=== PATIENT | male | born 1985 | race Caucasian/White ===

== ENCOUNTER 2024-07-10 09:20 | Outpatient (REF) | payer OTHER, SELFPAY ==
--- OUTSIDE RECORDS SUMMARY | 2024-07-10 09:59 | XMS_ITS | Data Portability ---
Author Organization [facility] Home Service Address [address] [place] [address] Assessment No assessment recorded. Plan of Treatment Reminders Order Date Submit Date Provider Last Modified By Organization Details Last Modified Time Details Appointments ANNUAL EXAM 2024 09:00A KIMMIE MCLAUGHLIN Not available Not available Not available ANNUAL EXAM 2025 09:00A KIMMIE MCLAUGHLIN Not available Not available Not available Lab HIV 1+2 AB + HIV 1 p24 Ag, qualitati ve immunoass ay, serum 2018 019 [email or web address] Not available 01/20/2019 10:10:27 hepatitis C Ab, serum 2018 019 [email or web address] Not available 01/20/2019 10:10:27 HBsAg (hepatiti s B surface Ag), confirmat ion, serum 2018 019 [email or web address] Not available 01/20/2019 10:10:27 hbcab (hepatiti s B core Ab) igm, serum 2018 019 JACOBO Not available 03/02/2019 16:48:46 hepatitis B surface Ab, quantitat brody, serum 2018 019 JACOBO Not available 03/02/2019 08:35:24 CMP, serum or plasma 2018 019 JACOBO Not available 02/09/2019 08:21:39 hepatitis B surface Ab, quantitat brody, serum 2018 020 [email or web address] Not available 03/02/2019 08:35:24 hbcab (hepatiti s B core Ab) igm, serum 2018 020 JACOBO Not available 03/02/2019 16:48:45 HIV 1+2 AB + HIV 1 p24 Ag, qualitati ve immunoass ay, serum 2019 020 sbucko Not available 07/15/2019 16:42:38 hepatitis C Ab, serum 2019 020 [email or web address] Not available 07/15/2019 16:42:38 HBsAg (hepatiti s B surface Ag), confirmat ion, serum 2019 020 sbucko Not available 07/15/2019 16:42:38 hbcab (hepatiti s B core Ab) igm, serum 2019 sbucko Not available 07/15/2019 16:42:38 hepatitis B surface Ab, quantitat brody, serum 2019 020 sbucko Not available 07/15/2019 16:42:39 urinalysi s, dipstick 2019 020 [facility], [address] [facility], [place], [address], 07/15/2019 16:27:33 CMP, serum or plasma 2019 020 JACOBO Not available 09/04/2019 17:01:51 lipids, total, serum 2019 020 JACOBO Not available 09/04/2019 17:01:51 CBC w/ diff 2019 020 JACOBO Not available 09/04/2019 17:01:51 RPR (rapid plasma reagin), serum 2022 023 [facility], [address] [place] [address], [place], [address], 06/15/2022 09:55:16 lipid panel, blood 2022 023 [facility], [address] [place] [address], [place], [address], 07/23/2022 17:06:50 CMP, serum or plasma 2022 023 [facility], [address] [place] [address], [id number], 07/23/2022 17:06:49 CBC w/ auto diff 2022 023 [facility], [address] [place] [address], [id number], 06/15/2022 09:55:16 CMP, serum or plasma 2023 024 [facility], [address] [place] [address], [id number], 06/28/2023 09:18:44 lipid panel, blood 2023 024 [facility], [address] [place] [address], [id number], 06/28/2023 09:18:44 CBC w/ auto diff 2023 024 [facility], [address] [place] [address], [id number], 06/28/2023 09:18:44 hemoglobi n A1c, QN, blood 2023 024 [facility], [address] [place] [address], [id number], 06/28/2023 09:18:44 PSA, serum or plasma 2023 024 [facility], [address] [place] [address], [id number], 06/28/2023 09:18:44 CMP, serum or plasma 2024 025 [facility], [address] [place] [address], [id number], 07/10/2024 09:10:04 lipid panel, blood 2024 025 [facility], [address] [place] [address], [id number], 07/10/2024 09:10:04 CBC w/ auto diff 2024 025 [facility], [address] [place] [address], [id number], 07/10/2024 09:10:04 hemoglobi n A1c, QN, blood 2024 025 [facility], [address] [place] [address], [id number], 07/10/2024 09:10:04 PSA, total + free, serum or plasma 2024 025 [facility], [address] [place] [address], [id number], 07/10/2024 09:10:04 Referral general surgeon referral 2023 024 [facility] Fel[address] Pedraza, [place], [address], 06/28/2023 10:36:09 urologist referral 2024 025 [facility], [facility] [place], [address], 07/10/2024 09:31:02 Procedures None recorded. Surgeries None recorded. Imaging None recorded. Medication Orders Isentress HD 600 mg tablet 2018 019 [id number], [address], [place], [id number], 07/15/2019 16:08:21 Truvada 200 mg-300 mg tablet 2018 019 [id number], [address], [place], [place], [phone], 07/15/2019 16:08:26 Patient TargetsNo targets recorded. Patient Instructions Encounter Date Encounter Id Patient Instructions Last Modified By Organization Details Last Modified Time 07/15/2019 [id number] high blood pressure: care instructions [email or web address] Not available 07/15/2019 16:27:33 learning about high blood pressure [email or web address] Not available 07/15/2019 16:27:32 Reason for Referral General Surgeon Referral for Lipoma of skin has a lipoma in the lower left side of his back, would like removed Referring Physician: Francisca Fontenot, Internal Medicine, Encounter Date: 06/28/2023 Urologist Referral for Vasec cody requested would like to have a vasectomy Referring Physician: Francisca Fontenot, Internal Medicine, Encounter Date: 07/10/2024 Results Created Date Observation Date Name Description Value Unit Range Abnormal Flag Note LastModifiedBy Organization Detail LastModifiedTime 07/15/1907/15/2019 urina lysis , dipst ick Leukocytes Trace Not Available [facility] [address], [place], [address], 07/15/2019 16:09:56 07/15/1907/15/2019 urina lysis , dipst ick Nitrite negati ve Not Available [facility] [address], [place], [address], 07/15/2019 16:09:56 07/15/1907/15/2019 urina lysis , dipst ick Urobilinogen 1 Not Available [facility] [address], [place], [address], 07/15/2019 16:09:56 07/15/19 20 07/15/2019 urina lysis , dipst ick Protein Trace Not Available [facility] [address], [place], [address], 07/15/2019 16:09:56 07/15/1907/15/2019 urina lysis , dipst ick pH 6.[address] [facility] [address], [place], [address], 07/15/2019 16:09:56 07/15/19 20 07/15/2019 urina lysis , dipst ick Blood Negati ve Not Available [facility] [address], [place], [address], 07/15/2019 16:09:56 07/15/19 20 07/15/2019 urina lysis , dipst ick Specific [place] 1.[address] [facility] [address], [place], [address], 07/15/2019 16:09:56 07/15/19 20 07/15/2019 urina lysis , dipst ick Ketone Trace Not Available [facility] [address], [place], [address], 07/15/2019 16:09:56 07/15/19 20 07/15/2019 urina lysis , dipst ick Bilirubin Negati ve Not Available [facility] [address], [place], [address], 07/15/2019 16:09:56 07/15/19 20 07/15/2019 urina lysis , dipst ick Glucose Negati ve Not Available [facility] [address], [place], [address], 07/15/2019 16:09:56 07/15/19 20 07/15/2019 urina lysis , dipst ick Appearance Clear Not Available [facility] [address], [place], [address], 07/15/2019 16:09:56 07/15/19 20 07/15/2019 urina lysis , dipst ick Color Yellow Not Available [facility] [address], [place], [address], 07/15/2019 16:09:56 Result Notes None recorded. Problems Name Problem SNOMED Code Status Onset Date Resolution Date Notes Provider Name and Address Organization Details Recorded Time Achilles tendinitis 09019259 Active 2018 KIMMIE CASTANON [address] [place] [address], [address], [facility] 3 09:42:24 Hemorrhoid s 34856313 [facility] 16:[facility]:01 History of chickenpox 875774592 Active 2018 [facility] 16:51:08 Rupture of Achilles tendon 943212068 Active 2018 Daren Hand, [address] [place] [address], [address], [facility] 9 15:13:43 Lipoma of skin 673087983 Active 2023 KIMMIE CASTANON [address] [place] [address], [address], [facility] 4 09:09:58 Adult attention deficit hyperactiv ity disorder 452665044 Active 2024 KIMMIE CASTANON [address] [place] [address], [address], [facility] 5 09:04:26 Problem Notes None recorded. Medical Equipment None Reported. Allergies Allergen ID Allergen Name Allergen Category Reaction Reaction Severity Criticality Documentation Date Start Date Code Code System Note Provider Name and Address Organization Details Recorded Time 2680 Substance with sulfonami de structure and antibacte rial mechanism of action (substanc e) medicatio n Not available Not available Not available 06/11/2018 83520 8003 [facility]ED [facility] 16:50:42 Medications Name Sig Start Date Stop Date Status Note LastModified by Organization Details LastModified Time clindamycin HCl 300 mg capsule 06/13 completed Not Available Not Available Not Available aspirin 325 mg tablet,delay ed release 06/13 completed Not Available Not Available Not Available oxycodone 5 mg tablet 06/13 completed Not Available Not Available Not Available Truvada 200 mg-300 mg tablet 200 mg/300 mg PO qd 07/15 completed Not Available Not Available Not Available M-M-R II (PF) 1,000-12,500 TCID50/0.5 mL subcutaneous solution 06/13 completed Not Available Not Available Not Available Isentress HD 600 mg tablet Take 2 tablets every day by oral route for 23 days. 07/15 completed Not Available Not Available Not Available Vitals Date Recorded Body height Body mass index (BMI) Body weight Heart rate Oxygen saturation Oxygen saturation in Arterial blood by Pulse oximetry Systolic blood pressure Diastolic blood pressure Provider Name and Address Organization Details Last Updated DateTime 0 180.98 cm 23.3 kg/m2 32693.6 7 g 66 /min 99 % 99 % 140 mm[Hg] 90 mm[Hg] Jo Cruz [facility] 0 16:09:39 Date Recorded Body height Body mass index (BMI) Body weight Oxygen saturation Oxygen saturation in Arterial blood by Pulse oximetry Heart rate Systolic blood pressure Diastolic blood pressure Provider Name and Address Organization Details Last Updated DateTime 3 180.98 cm 23.4 kg/m2 35856.3 9 g 99 % 99 % 61 /min 110 mm[Hg] 64 mm[Hg] Katiuska Brown [facility] 3 09:33:46 Date Recorded Body height Body mass index (BMI) Body weight Heart rate Oxygen saturation Oxygen saturation in Arterial blood by Pulse oximetry Systolic blood pressure Diastolic blood pressure Provider Name and Address Organization Details Last Updated DateTime 4 180.34 cm 24.4 kg/m2 87958.6 6 g 61 /min 98 % 98 % 120 mm[Hg] 60 mm[Hg] Dayana Bess [facility] 4 09:05:27 Date Recorded Body height Body mass index (BMI) Body weight Heart rate Oxygen saturation Oxygen saturation in Arterial blood by Pulse oximetry Systolic blood pressure Diastolic blood pressure Provider Name and Address Organization Details Last Updated DateTime 5 180.34 cm 23.3 kg/m2 70741.9 3 g 68 /min 99 % 99 % 144 mm[Hg] 82 mm[Hg] Reece [place] [facility] 5 09:00:14 Date Recorded Body height Body mass index (BMI) Body weight Heart rate Oxygen saturation Oxygen saturation in Arterial blood by Pulse oximetry Systolic blood pressure Diastolic blood pressure Provider Name and Address Organization Details Last Updated DateTime 9 181.61 cm 22.7 kg/m2 29678.7 4 g 62 /min 99 % 99 % 138 mm[Hg] 90 mm[Hg] Jo Cruz [facility] 9 09:49:21 Social History Question Answer Notes LastModified by Organizat ion Details LastModified Time Tobacco Smoking Status Former Smoker Not Available [facility] 04[facility]05/2020 03:36:23 What Was The Date Of Your Most Recent Tobacco Screening? 07/10/2024 [email or web address] Information not available 07/10/2024 Do You Or Have You Ever Used Any Other Forms Of Tobacco Or Nicotine? No [email or web address] Information not available 06/28/2023 Sex: Unknown Functional Status None recorded. Mental Status None recorded. Family History Nothing Reported. Medical History Condition Response Coronary Artery Disease N Other N Gout N Kidney Stones N Blood Diseases N Breast Cancer N Blood Transfusion N Lung Disease N Depression N COPD N Defects or Inherited Disease N Anxiety Disorder N Muscle, Joint, or Bone Problems N Obesity N Vision or Eye Problems N Arthritis N Polyps N Infertility N Mental Disorder N Cancer N Varicosities N Stroke N Endometriosis N Bladder or Kidney Problems N High Cholesterol N Liver Disease N Headaches N Fibromyalgia N Kidney Disease N Allergies/Hayfever N Heart Problems N Hospitalizations N Thyroid Problems N GI Problems N Skin Problems N Eating Disorder N Anemia N MRSA exposure N Constipation N Mental Illness N Ovarian Cancer N Diabetes N Seizures/Epilepsy N Tuberculosis N Congestive Heart Failure (CHF) N Eczema N Diverticulitis N Abuse/Domestic Violence N Asthma N Reflux/GERD N Hepatitis N Heart Disease N Pulmonary Embolism N Hypertension N Osteoporosis N Chicken Pox N Autism Spectrum Disorder (ASD) N Immunizations Vaccine Type Date Status Note Provider Nam e and Address Organization Details Recorded Time COVID-19, mRNA, LNP-S, PF, 50 mcg/0.5 mL dose 0 completed Emeli Gencarelle null, [facility] 06/28/2023 09:01:43 COVID-19, mRNA, LNP-S, PF, 50 mcg/0.5 mL dose 1 completed Emeli Gencarelle null, [facility] 06/28/2023 09:01:43 COVID-19, mRNA, LNP-S, PF, 50 mcg/0.5 mL dose 1 completed Emeli Gencarelle null, [facility] 06/28/2023 09:01:43 COVID-19, mRNA, LNP-S, PF, 50 mcg/0.5 mL dose 2 completed Emeli Gencarelle [facility] 06/28/2023 09:01:43 influenza, unspecified formulation 5 completed Emeli Gencarelle [facility] 06/28/2023 09:01:43 Tdap 3 completed KIMMIE CASTANON [address] [place] [address], [address], [facility] 06/28/2023 09:14:38 influenza, unspecified formulation 4 completed KIMMIE CASTANON [address] [place] [address], [address], [facility] 07/10/2024 09:11:07 MMR 8 completed Jewell Chappell [facility] 06/13/2018 14:35:25 Past Encounters Encounter ID Performer Location Encounter Start Date Encounter Closed Date Diagnosis/Indication Diagnosis SNOMED-CT Code Diagnosis ICD10 Code Diagnosis Note [id number] [facility] [address] [facility],[place] [address] 06/13/2018 14:25:51 06/13/2018 15:21:43 Active or passive immunization 841642046 Z23 PPD read 72 hrs [id number] [facility] [address] [facility],[place] [address] 01/20/2019 09:40:59 01/20/2019 10:09:00 Needle stick injury of finger 469076946 S61.239A [id number] [facility] [address] [facility] [address], [address] [place] [facility] [place] [address] 07/15/2019 15:36:07 07/15/2019 16:48:47 Active or passive immunization 294538219 Z23 Adult heal th examination 418756063 Z00.00 takes vitamin d Needle sti ck injury of finger 878755536 S61.239A Essential hypertension 62390141 I10 pt to monitor BP at home and will send message via portal on readings at home if BP remains elevated plan to start low dose lisinopril [id number] [facility] [address] [facility] [address] 06/15/2022 09:26:21 06/15/2022 10:31:16 Active or passive immunization 877475723 Z23 up to date Adult heal th examination 331599006 Z00.00 BP is excellent today Venereal d isease screening 421385822 Z11.3 will set up with screeningw as in close contact [id number] KIMMIE CASTANON [facility] [address] [facility] [address], [place] [address] 06/28/2023 09:01:31 06/28/2023 09:54:31 Adult health examination 303337641 Z00.00 BP is excellent today Lipoma of skin 652584598 D17.1 will set up with consult with gen surgery [id number] KIMMIE CASTANON [facility] [address] [facility] [address] [address] 07/10/2024 08:52:38 07/10/2024 09:15:28 Adult health examination 877691191 Z00.00 BP is excellent today Vasectomy requested 2508 98733 Z30.2 will set up for patient Health Concerns Section Related Observation LastModified by Organization Detai ls LastModified Time None Recorded Concern Status LastModified by Organization Details LastModified Time None Recorded Advance Directives Directive None Recorded Payers Encounter Date Sequence Insurance Name Policy Number Policy Shannon Covered Member ID Shannon Member ID Guarantor Name 01/20/2019 1 [facility] [id number] Toribio Michaudauvais [id number] Toribio Brooks 07/15/2019 1 [facility] [id number] Toribio Sun [id number] Toribio Brooks 06/15/2022 1 [facility] [id number] Toribio Sun [id number] Toribio Brooks 06/28/2023 1 [facility] [id number] Toribio Sun [id number] Toribio Brooks 07/10/2024 1 [facility] [id number] Toribio Sun [id number] Toribio Boroks Sun Notes Date Note Type Note Provider Name a tx Address Organization Details Recorded Time 9 text/html needle stick at work started on prophylaxis at [facility] f/u labs September [address], [address] 01/20/2019 10:07:56 0 text/html Annual WellnessReported bypatient.Diet and Nutrition:healthy diet Fracture Risk:no history of fractures; no recent explained fracture; no sudden unexplained fractures; no previous musculoskeletal injuries Physical Activity:exercises on a regular basis; recent increase in physical activity; good physical condition Additional Lifestyle Factors:no tobacco use; no alcohol intake; stopped drinking alcohol Depression Risk:never feels sad, empty, or tearful; no loss of interest in activities; no significant changes in weight; no sleep disturbances or insomnia; no agitation; no loss of energy; no feelings of worthlessness or guilt; no thoughts of suicide; no history of depression; no history of mood disorders Hearing:no loss of hearing Vision:no vision problems Arleen [address], [address], [facility] 07/15/2019 16:34:05 3 text/html Annual WellnessReported bypatient.Diet and Nutrition:healthy diet; discussed vitamin and supplement use; discussed portion control; discussed maintaining calcium balance; discussed diet improvement; eating well, mostly plant based Fracture Risk:no history of fractures; no recent explained fracture; no sudden unexplained fractures; no previous musculoskeletal injuries; left radial fracture ruptured right achilles Physical Activity:exercises on a regular basis; recent increase in physical activity; good physical condition; discussed weightbearing activities; discussed exercise habits Additional Lifestyle Factors:no tobacco use; drinks alcohol (mild-moderate) (occasionally) Depression Risk:never feels sad, empty, or tearful; no loss of interest in activities; no significant changes in weight; no sleep disturbances or insomnia; no agitation; no loss of energy; no feelings of worthlessness or guilt; no thoughts of suicide; no history of depression; no history of mood disorders Hearing:no loss of hearing Vision:no vision problems; is thinking about a vision check did have RSV four months ago KIMMIE CASTANON [address] [place] [address], [address], [facility] 06/15/2022 09:55:06 4 text/html Annual WellnessReported bypatient.Diet and Nutrition:healthy diet; discussed vitamin and supplement use; discussed portion control; discussed maintaining calcium balance; discussed diet improvement Fracture Risk:no history of fractures; no recent explained fracture; no sudden unexplained fractures; no previous musculoskeletal injuries Physical Activity:exercises on a regular basis; recent increase in physical activity; good physical condition Additional Lifestyle Factors:no tobacco use; drinks alcohol (mild-moderate) Depression Risk:never feels sad, empty, or tearful; no loss of interest in activities; no significant changes in weight; no sleep disturbances or insomnia; no agitation; no loss of energy; no feelings of worthlessness or guilt; no thoughts of suicide; no history of depression; no history of mood disorders Hearing:no loss of hearing Vision:no vision problemsNotes:last dentist appt was 3 mos KIMMIE CASTANON [address] [place] [address], [address], [facility] 06/28/2023 09:22:28 5 text/html Annual WellnessReported bypatient.Diet and Nutrition:healthy diet; discussed vitamin and supplement use; discussed portion control; discussed maintaining calcium balance; discussed diet improvement Fracture Risk:no history of fractures; no recent explained fracture; no sudden unexplained fractures; no previous musculoskeletal injuries Physical Activity:exercises on a regular basis; recent increase in physical activity; good physical condition; discussed weightbearing activities; discussed exercise habits Additional Lifestyle Factors:no tobacco use; drinks alcohol (mild-moderate) Depression Risk:never feels sad, empty, or tearful; no loss of interest in activities; no significant changes in weight; no sleep disturbances or insomnia; no agitation; no loss of energy; no feelings of worthlessness or guilt; no thoughts of suicide; no history of depression; no history of mood disorders Hearing:no loss of hearing Vision:no vision problems KIMMIE CASTANON [address] [place] [address], [address], [facility] 07/10/2024 09:15:27
--- OUTSIDE RECORDS SUMMARY | 2024-07-10 09:59 | XMS_ITS | Continuity of Care Document ---
Author Organization [facility], [facility] Address [address] [place] [address] Assessment No assessment recorded. Plan of Treatment Reminders Order Date Submit Date Provider Last Modified By Organization Details Last Modified Time Details Appointments ANNUAL EXAM 2024 09:00A KIMMIE MCLAUGHLIN Not available Not available Not available ANNUAL EXAM 2025 09:00A KIMMIE MCLAUGHLIN Not available Not available Not available Lab CMP, serum or plasma 2024 025 [facility], [address] [place] [address], [id number], 07/10/2024 09:10:04 lipid panel, blood 2024 025 [facility], [address] [place] [address], [id number], 07/10/2024 09:10:04 CBC w/ auto diff 2024 025 [facility], [address] [place] [address], [id number], 07/10/2024 09:10:04 hemoglobi n A1c, QN, blood 2024 025 [facility], [address] [place] [address], [id number], 07/10/2024 09:10:04 PSA, total + free, serum or plasma 2024 025 [facility], [address], [place], [id number], 07/10/2024 09:10:04 Referral urologist referral 2024 025 [facility], [address] [place], [address], 07/10/2024 09:31:02 Procedures None recorded. Surgeries None recorded. Imaging None recorded. Medication Orders None recorded. Patient TargetsNo targets recorded. Patient InstructionsNo instructions recorded. Reason for Referral Urologist Referral for Vasec cody requested would like to have a vasectomy Referring Physician: Francisca Fontenot, Internal Medicine, Encounter Date: 07/10/2024 Problems Name Problem SNOMED Code Status Onset Date Resolution Date Notes Provider Name and Address Organization Details Recorded Time Achilles tendinitis 84569844 Active 2018 KIMMIE CASTANON [address] [place] [address], [phone], [facility] 3 09:42:24 Hemorrhoid s 12207493 [facility] 16[facility]01 History of chickenpox 416715546 Active 2018 Jewell gutierrez [facility] 9 16:51:08 Rupture of Achilles tendon 526040414 Active 2018 Daren Hand, [address] [place] [address], [phone], [facility] 9 15:13:43 Lipoma of skin 849534228 Active 2023 KIMMIE CASTANON [address] [place] [address], [phone], [facility] 4 09:09:58 Adult attention deficit hyperactiv ity disorder 145752025 Active 2024 KIMMIE CASTANON [address] [place] [address], [phone], [facility] 5 09:04:26 Problem Notes None recorded. Medical Equipment None Reported. Allergies Allergen ID Allergen Name Allergen Category Reaction Reaction Severity Criticality Documentation Date Start Date Code Code System Note Provider Name and Address Organization Details Recorded Time 2680 Substance with sulfonami de structure and antibacte rial mechanism of action (substanc e) medicatio n Not available Not available Not available 06/11/2018 16435 8003 SNOMED Jewell Ta gutierrez [facility] 9 16:50:42 Medications Name Sig Start Date [...] Updated DateTime 5 180.34 cm 23.3 kg/m2 02799.9 3 g 68 /min 99 % 99 % 144 mm[Hg] 82 mm[Hg] Reece Warren [facility] 5 09:00:14 Social History Question Answer Notes LastModified by Organizat ion Details LastModified Time Tobacco Smoking Status Former [facility]oker Not Available [facility] 04/05/2020 03:36:23 What Was The Date Of Your Most Recent Tobacco Screening? 07/10/2024 [email or web address] Information not available 07/10/2024 Do You Or Have You Ever Used Any Other Forms Of Tobacco Or Nicotine? No [email or web address] Information not available 06/28/2023 Sex: Unknown Functional Status None recorded. Mental Status None recorded. Family History Nothing Reported. Medical History Condition Response Coronary Artery Disease N Gout N Other N Kidney Stones N Blood Diseases N Blood Transfusion N Breast Cancer N COPD N Depression N Lung Disease N Defects or Inherited Disease N Anxiety Disorder N Muscle, Joint, or Bone Problems N Obesity N Vision or Eye Problems N Arthritis N Infertility N Polyps N Mental Disorder N Cancer N Stroke N Varicosities N Endometriosis N Bladder or Kidney Problems N High Cholesterol N Liver Disease N Fibromyalgia N Headaches N Kidney Disease N Allergies/Hayfever N Heart Problems N Hospitalizations N Thyroid Problems N GI Problems N Eating Disorder N Skin Problems N Anemia N MRSA exposure N Constipation N Mental Illness N Diabetes N Ovarian Cancer N Seizures/Epilepsy N Tuberculosis N Congestive Heart Failure (CHF) N Eczema N Abuse/Domestic Violence N Diverticulitis N Asthma N Reflux/GERD N Hepatitis N Heart Disease N Pulmonary Embolism N Hypertension N Chicken Pox N Autism Spectrum Disorder (ASD) N Osteoporosis N Immunizations Vaccine Type Date Status Note Provider Nam e and Address Organization Details Recorded Time COVID-19, mRNA, LNP-S, PF, 50 mcg/0.5 mL dose 0 completed Emeli Gencarelle [facility] 06/28/2023 09:01:43 COVID-19, mRNA, LNP-S, PF, 50 mcg/0.5 mL dose 1 completed Emeli Gencarelle [facility] 06/28/2023 09:01:43 COVID-19, mRNA, LNP-S, PF, 50 mcg/0.5 mL dose 1 completed Emeli Gencarelle null, [facility] 06/28/2023 09:01:43 COVID-19, mRNA, LNP-S, PF, 50 mcg/0.5 mL dose 2 completed Emeli Gencarelle [facility] 06/28/2023 09:01:43 influenza, unspecified formulation 5 completed Emeli Gencarelle [facility] 06/28/2023 09:01:43 Tdap 3 completed KIMMIE CASTANON [address] [place] [address], [phone], [facility] 06/28/2023 09:14:38 influenza, unspecified formulation 4 completed KIMMIE CASTANON [address], [place], [address], [facility] 07/10/2024 09:11:07 MMR 8 [facility] 06/13/2018 14:35:25 Past Encounters Encounter ID Performer Location Encounter Start Date Encounter Closed Date Diagnosis/Indication Diagnosis SNOMED-CT Code Diagnosis ICD10 Code Diagnosis Note [id number] KIMMIE CASTANON [facility] [address] [address] 07/10/2024 08:52:38 07/10/2024 09:15:28 Adult health examination 789913119 Z00.00 BP is excellent today Vasectomy requested 1839 20842 Z30.2 will set up for patient Health Concerns Section Related Observation LastModified by Organization Detai ls LastModified Time None Recorded Concern Status LastModified by Organization Details LastModified Time None Recorded Payers Encounter Date Sequence Insurance Name Policy Number Policy Shannon Covered Member ID Shannon Member ID Guarantor Name 07/10/[address] [place] [address] [id number] Toribio Gutierrez [id number] Toribio Gutierrez Notes Date Note Type Note Provider Name a nd Address Organization Details Recorded Time 5 text/html Annual WellnessReported bypatient.Diet and Nutrition:healthy [...] of hearing Vision:no vision problems KIMMIE CASTANON [address], [place], [address], [facility] 07/10/2024 09:15:27
--- OUTSIDE RECORDS SUMMARY | 2024-07-10 10:00 | XMS_ITS | Clinical Summary ---
Author Organization [facility] Address [address] [place] [address] Care Team Providers Care Merchandise Flow Team Leader Name Role Phone Unavailable Primary Care Provider Unavailabl e Source Comments PLEASE NOTE, if this patient is a minor, it may be UNLAWFUL to discuss sensitive information that is contained in these records (such as FAMILY PLANNING, MENTAL HEALTH or SUBSTANCE ABUSE) with the minor patient's parent or other person without the patient's specific authorization.[facility] Allergies Active Allergy Reactions Criticality Noted Date Comments Sulfa (Sulfonamide Antibiotics) 03/12/2023 Other Reaction(s): Not available Active Problems Problem Noted Date Diagnosed Date Rupture of Achilles tendon 06/12/2018 Achilles tendinitis 06/10/2018 History of chickenpox 06/10/2018 Immunizations Name Administration Dates Next Due Flu, Preservative Free 02/07/2023 INFLUENZA A (H1N1) VACCINE (CMS) 02/12/2016 INFLUENZA, SEASONAL, INJECTA BLE, PRESERVATIVE FREE 03/07/2015 MMR (MMR II/Priorix) 03/24/2018 MODERNA COVID-19 VACCINE BIV ALENT, BLUE CAP, 6M+ 02/19/2022 Moderna COVID-19 (Spikevax), Mrna, Lnp-s, Pf, 50 Mcg/0.5 Ml, 12yr+ 02/19/2022,04/07/2021,06/27/2020,2019 Moderna COVID-19 Vaccine, re d cap blue label, 12+ Primary Series 04/07/2021,06/27/2020,05/26/2020 PPD 11/05/2023 TDAP 03/13/2023,11/01/2022 Social History Tobacco Use Types Packs/Day Years Used Date Smoking Tobacco: Never Assessed Social Connections Answer Date Recorded Connectedness 0 02/13/2024 Financial Resource Strain Answer Date R ecorded Financial Resource Strain 0 2021 Stress Answer Date Recorded Stress 0 07/31/2021 Physical Activity Answer Date Recorded Physical Activity 0 07/31/2021 Food Insecurity Answer Date Recorded Food 0 02/27/2024 Transportation Needs Answer Date Record ed Transportation 0 07/31/2021 Housing Stability Answer Date Recorded Housing 0 07/31/2021 Safety and Environment Answer Date Soren rded Safety 0 07/31/2021 Utilities Answer Date Recorded Utilities 0 07/31/2021 Employment Answer Date Recorded Stress 0 02/13/2024 Sex and Gender Information Value Date Recorded Sex Assigned at Male 11/05/2023 7:57 AM PDT Legal Sex Male 10:44 AM PDT Gender Identity Male 11/05/2023 7:57 AM PDT Sexual Orientation Straight 11/05/2023 7: 57 AM PDT Plan of Treatment Health Maintenance Due Date Last Done Comments Diabetes Screening 1985 Tobacco Screening 1985 Annual Preventive Care Visit 08/02/2001 Hypertension Screening (#1) 08/02/2001 Imm-Hepatitis B (1 of 3 - 19 + 3-dose series) 08/02/2002 Lipid Screening 02/23/2021 02/24/2016 [id number] ( season) 2024 02/19/2022, 02/19/2022, 04/07/2021, Additional history exists Imm-Influenza (#1) 2024 02/07/2023, 03/07/2015 Alcohol and Drug Screen 06/03/2024 Depression Annual Screen 06/03/2024 Imm-DTaP/Tdap/Td (3 - Td or Tdap) 03/13/2033 023, 11/01/2022 HIV Screening Completed 02/27/2019 Hepatitis C Screening Completed 02/27/2019 Insurance [employer] ([employer]) Member Subscriber Plan / Payer (Ef fective 2022-Present) Name:Troibio Gutierrez Relation to Subscriber:Self Name:Toribio Gutierrez Payer ID:[id number] Group ID:Not on file Type:Indemnity Address: [address] [place] [address]
[2024-07-10 13:32] LABS: MANUAL DIFF FLAG NO
[2024-07-10 13:47] LABS: Basophils Percent Auto 0.7 % (0-2); Hematocrit 45.1 % (42.0-52.0); Hemoglobin 14.9 g/dl (14.0-18.0); Imm Gran Abs Auto 0.01 X10*3/uL (0.00-0.03); Imm Gran Pct Auto 0.2 % (0.0-0.4); Lymphocytes Absolute Auto 1.6 X10*3/uL (1.2-4.9); Lymphocytes Percent Auto 38.4 % (20-40); Mean Corpuscular Hemoglobin 28.8 pg (27.0-33.0); Mean Corpuscular Volume 87.2 fL (80.0-98.0); Mean Platelet Volume 10.3 fL (9.4-12.4); Monocytes Absolute Auto 0.3 X10*3/uL (0.1-1.2); Monocytes Percent Auto 7.4 % (2-11); Neutrophils Absolute Auto 2.1 x10*3/uL (2.0-8.3); Neutrophils Percent Auto 52.3 % (45-73); Platelet Count 222 X10*3/uL (160-400); Red Blood Count 5.17 X10*6/uL (4.60-5.80); Red Cell Distribution Width 11.9 % (11.0-16.0)
[2024-07-10 14:08] LABS: Alanine Aminotransferase 29 U/L (0-40); Albumin Level 4.4 g/dL (3.5-5.0); Alkaline Phosphatase 49 U/L (39-117); Anion Gap 13 (12-20); Aspartate Amino Transferase 35 U/L (5-37); Bilirubin Total 0.6 mg/dL (0.0-1.0); Blood Urea Nitrogen 11 mg/dL (9-16); Calcium 9.6 mg/dL (8.4-10.2); Carbon Dioxide 28 mmol/L (22-29); Chloride 102 mmol/L (96-108); Cholesterol 187 mg/dL (<200); Estimated Glomerular Filt Rate > 60; Glucose Random 98 mg/dL (60-115); HDL Cholesterol 59 mg/dL (>40); LDL Cholesterol Calculated 112 mg/dL (<100); Potassium 4.3 mmol/L (3.3-5.1); Sodium 139 mmol/L (135-145); Total Protein 7.4 g/dL (6.5-8.0); Triglycerides 81 mg/dL (<150)
[2024-07-10 14:16] LABS: Estimated Average Glucose 105 mg/dL; Hemoglobin A1C 133.5553 umol/L; Hemoglobin A1c % 5.3 % (<6.0)
[2024-07-10 14:44] LABS: Prostate Specific Antigen 1.18 ng/mL (<0.05-4.0)
== END 2024-07-10 09:21 | disposition home or self-care (01) ==
LOC: HO.MANLDS 09:20
PROVIDERS: Visit Provider Internal Medicine
DX: Z00.00 Encounter for general adult medical examination without abnormal findings (principal); Z12.5 Encounter for screening for malignant neoplasm of prostate; Z13.1 Encounter for screening for diabetes mellitus; Z13.6 Encounter for screening for cardiovascular disorders
CPT/HCPCS: 36415; 80053; 80061; 83036; 84153; 85025